=== PATIENT | male | born 2000 | race Caucasian/White ===

== ENCOUNTER → 2019-07-03 | Outpatient (CLI) | payer OTHER ==
[~2019-07-03] MED LIST: CODACEE120 PO; GATI5OPSO OD; KETO.5OPSO OS; RXONDA4ODT MM
== END | disposition home or self-care (01) ==
LOC: LAB SHORT 07:46 → PLD 07:46
DX: D22.61 Melanocytic nevi of right upper limb, including shoulder (principal)
CPT/HCPCS: 88305